=== PATIENT | female | born 2000 | race Asian ===

== ENCOUNTER 2019-02-13 22:22 | Emergency (ER) | payer MEDICAID ==
[~2019-02-13] VITALS: Ht 170.2 cm; Wt 63.5 kg
[2019-02-13 22:22] VITALS: BP 132/65
== END 2019-02-13 23:33 | disposition home or self-care (01) ==
LOC: ER 22:25
DX: S93.491A Sprain of other ligament of right ankle, initial encounter (principal); X58.XXXA Exposure to other specified factors, initial encounter; Y93.89 Activity, other specified; Y92.89 Other specified places as the place of occurrence of the external cause; Y99.8 Other external cause status
CPT/HCPCS: 73610-TC

== ENCOUNTER 2019-11-12 08:40 | Emergency (ER) | payer MEDICAID ==
[~2019-11-12] VITALS: Ht 170.2 cm; Wt 61.2 kg
--- NOTE | 2019-11-12 08:48 | NUR ---
CAME IN FOR BILATERAL HIP PAIN, FELT 6 DAYS AFTER [employer] TRA[employer], DENIES TRAUMA/INJURY. TO ER BED 11, HOOKED TO MONITOR, CHANGED TO HOSP GOWN, WARM BLANKET PROVIDED, PATIENT AAO x 4, BREATHING EVEN AND UNLABORED. AWAITING MD PATEL.
--- NOTE | 2019-11-12 09:07 | NUR ---
DR LEE AT BEDSIDE
[2019-11-12 10:22] VITALS: BP 119/75
--- NOTE | 2019-11-12 10:22 | NUR ---
Patient discharged to home in stable condition. Written and verbal after care instructions given. Patient verbalizes understanding of instruction.
== END 2019-11-12 10:23 | disposition home or self-care (01) ==
LOC: ER 08:40
DX: S32.591A Other specified fracture of right pubis, initial encounter for closed fracture (principal); M25.532 Pain in left wrist; X58.XXXA Exposure to other specified factors, initial encounter; Y93.89 Activity, other specified; Y92.89 Other specified places as the place of occurrence of the external cause; Y99.8 Other external cause status
CPT/HCPCS: 72170-TC; 73110; 84703-TC

== ENCOUNTER 2019-11-30 14:19 | Emergency (ER) | payer MEDICAID ==
[~2019-11-30] VITALS: Ht 170.2 cm; Wt 61.2 kg
--- NOTE | 2019-11-30 14:32 | NUR ---
PT SEEN AND EXAMINED BY .
[2019-11-30] MEDS: LIDOCAINE 1% INJ 50 ML MDV IJ ONE (14:44)
[2019-11-30] MEDS ORDERED: LIDOCAINE /MPF 1% VIAL 5 ML VIAL ONE (14:46)
--- NOTE | 2019-11-30 15:06 | NUR ---
INCISION AND DRAINAGE DONE BY .
--- NOTE | 2019-11-30 16:54 | NUR ---
Patient discharged to home in stable condition. Written and verbal after care instructions given. Patient verbalizes understanding of instruction.
[2019-11-30 16:55] VITALS: BP 118/65
== END 2019-11-30 16:55 | disposition home or self-care (01) ==
LOC: ER 14:24
DX: L02.412 Cutaneous abscess of left axilla (principal)
CPT/HCPCS: 10060; 76536; 99284; A6407; J3490

== ENCOUNTER 2020-01-18 03:03 | Emergency (ER) | payer MEDICAID ==
[~2020-01-18] VITALS: Ht 170.2 cm; Wt 65.8 kg
[2020-01-18 03:03] VITALS: BP 141/84
== END 2020-01-18 03:21 | disposition home or self-care (01) ==
LOC: ER 03:03
DX: L60.0 Ingrowing nail (principal)